=== PATIENT | male | born 1950 | race Caucasian/White ===

== ENCOUNTER 2016-09-23 16:27 | Emergency (ER) | payer MEDICARE, OTHER ==
[~2016-09-23] VITALS: Ht 180.3 cm; Wt 95.5 kg
[~2016-09-23 16:27] MED LIST: ADA30 PO; ASP81TEC PO; BIOT5TAB PO; CALC-864 PO; CHOL10002 PO; CLON0.3T PO; CYAN250L PO; FES300 PO; METF500T4 PO; MULT-1018 PO; PYRI50CA PO; SIMV80TA4 PO; ZES20T PO
[2016-09-23 16:43] VITALS: BP 158/80; PULSE 65; RESP 16; O2SAT 96
--- NOTE | 2016-09-23 16:57 | ED.REPORT ---
HPI-Extremity Problem Upper Date of Service September 23, 2016 ED Provider: Kirt Torres MD Pt is a 66 y/o male w/ a hx of HTN, NIDDM, presenting to the ED c/o left finger 3 injury secondary to table saw accident which occurred about 1 hour ago. The patient was making a bird feeder at home and accidentally nicked his left finger 3. He has injured this finger before. He is right hand dominant. He denies numbness or weakness of the finger, any other sites of injury. He is not anticoagulated. Nursing Notes Stated Complaint: LEFT INDEX FINGER LAC FROM SAW ACCIDENT Chief Complaint: Laceration Nursing Notes Reviewed: Yes Allergies: Coded Allergies: No Known Allergies (Verified , 09/23/16) Scheduled Amoxicillin/Clav K 875-125 mg (Augmentin 875-125 mg) 1 Each Tablet 1 TABLET PO BID Aspirin-Expunged Drug, Do Not Renew! (Aspirin EC-Expunged Drug, Do Not Renew!) 81 Mg Tablet 81 MG PO DAILY DO NOT CRUSH Biotin (Biotin) 5 Mg Tablet 5 MG PO DAILY CYANOCOBALAMIN (B12)-Expunged Drug, Do Not Re (VITAMIN W-46-Zofjxebk Drug, Do Not Renew!) 250 Mcg Lozenge 500 MCG PO DAILY Calcium Carbonate (Natural Calcium) 500 Mg Tablet 1,250 MG PO DAILY Cholecalciferol-Expunged Drug, Do Not Renew! (Vitamin D3-Expunged Drug, Do Not Renew!) 1,000 Unit Tablet 1,000 UNITS PO DAILY Clonidine-Expunged Drug, Do Not Renew! (Clonidine-Expunged Drug, Do Not Renew!) 0.3 Mg Tablet 0.3 MG PO BID Ferrous Sulfate-Expunged Drug, Do Not Renew! (Feosol-Expunged Drug, Do Not Renew !) 325 Mg Tablet 325 MG PO DAILY Lisinopril-Expunged Drug, Do Not Renew! (Lisinopril-Expunged Drug, Do Not Renew! ) 20 Mg Tablet 20 MG PO DAILY MULTIVITAMIN-Expunged Drug, Do Not Renew! (MULTI VITAMIN -Expunged Drug, Do Not Renew!) 1 Each Tablet 1 EACH PO DAILY Metformin-Expunged Drug, Do Not Renew! (Metformin-Expunged Drug, Do Not Renew!) 500 Mg Tablet 500 MG PO BID Nifedipine-Expunged Drug, Do Not Renew! (Nifedipine-Expunged Drug, Do Not Renew! ) 30 Mg Tber 60 MG PO DAILY DO NOT CRUSH OR CHEW TABLET PYRIDOXINE HCL-Expunged Drug, Do Not Renew! (VITAMIN O-3-Pjrsxxtf Drug, Do Not Renew!) 50 Mg Capsule 50 MG PO DAILY Simvastatin-Expunged Drug, Choose New Med! (Simvastatin-Expunged Drug, Choose New Med!) 80 Mg Tablet 80 MG PO HS General Time Seen by MD: 16:57 Chief Complaint Finger injury left 3 Hx Obtained From: Patient Arrived By: Walk-in Onset Occurred: 1 - 4 hours ago Symptom Duration: Since onset Location: : Finger left 3 Quality: Painful Severity: Current: Moderate Severity: Maximum: Moderate Recent Healthcare: No recent doctor visit, No recent hospitalization Similar Sx Previous: Yes Past Medical History Past Medical History Hypertension T2DM Hyperlipidemia Hx of pneumonia Hx headaches GERD Hx kidney stones Hx UTI Hx back injury Past Surgical History Appendectomy Gastric bypass Vasectomy Oral tumor resection Smoking History Current Every Day Smoker Social History Alcohol Use: "Social" Drug Use: Denies drug use Ambulatory Status Independent Review of Systems Constitutional: Denies: Chills, Fever Musculoskeletal: Reports: Extremity pain Neurologic: Denies: Change LOC, Headache Complete sys rev & neg: except as marked. Hematologic: Reports Bleeding Physical Exam Initial Vital Signs Vital Signs (First) Date Time Temp Pulse Resp B/P Pulse Ox O2 Delivery O2 Flow Rate FiO2 09/23/16 16:43 36.5 65 16 158/80 96 Room Air Initial VS: Reviewed, Vital signs normal Head / Eyes: Atraumatic, Normocephalic, PERRL ENT: Mucous membranes moist, Conjunctiva normal, No scleral icterus Neck: Supple, Full range of motion Respiratory: Breath sounds normal, Clear to auscultation, No respiratory distress Cardiovascular: Regular rate & rhythm, Heart sounds normal, Intact distal pulses Abdomen / GI: Soft, Non-tender, No guarding, No rebound, No distention Lower Extremities: Vascular intact, Neuro intact, No swelling, No tenderness Skin: Warm, Dry, No cyanosis Neurologic: Alert, Oriented, Nonfocal Psychiatric: Mood/affect normal, Behavior normal, Normal thought content General/Constitutional: Awake, Alert, No acute distress, Well appearing, Cooperative, Not toxic appearing Wrist / Hand: Full range of motion, No deformity, Neurologic intact, Vascular intact, No ligamentous injury, Tendon function NL, No compartment syndrome, No clubbing/cyanosis Left 3rd finger oblique laceration extending from beyond DIP joint distally Appears to involve the nail bed with shearing off of the majority of finger nail. No exposed bony or ligamentous structures. Good cap refill. Sensation intact. Able to flex and extend finger at all joints. Good radial pulses. No other injuries Interpretation & Diagnostics X-Ray Interpretation Xray Interpretation: IMPRESSION: Third digit fracture. Dictated by: Fatoumata Haywood M.D. on 09/23/2016 at 18:01 Approved by: Fatoumata Haywood M.D. on 09/23/2016 at 18:02 Study Performed: Fingers, left Interpretation / Wet Read by: Interpret - Radiologist Procedures Digital Nerve Block Time: 17:18 Procedure Performed by: Allied health pract (YISSEL) Indication: Finger laceration repair Consent / Setup / Site Prep: Consent from patient, Time-out performed, Hand hygiene observed, Stand sterile technique Skin Preparation Agent: Shurclens Digit Involved: Middle finger left Digital Block Procedure: Two digital nerve block, Lidocaine 1%, 3cc Post-Procedure / Complications: No complications, Condition improved, Tolerated procedure well, Patient stable Time: 18:10 Procedure Performed by: Allied health pract (DALILA Vasquez) Indication: Finger laceration repair Consent / Setup / Site Prep: Consent from patient Skin Preparation Agent: Betadine, Normal saline Digit Involved: Middle finger left Digital Block Procedure: Lidocaine 2%, 3cc, 27g needle, Dorsal approach Laceration Management Procedure Performed by: Allied health pract (DALILA Vasquez) Location of Wound: Amputation of the nailbed of the left middle digit Wound Length: 2 cm Wound Preparation: Betadine, Normal saline Debridement: Minimal Irrigation: 250 cc Foreign Body Explore / Removal: Explored for foreign body Post-Procedure / Complications: Antibiotic oint applied, Dressing applied ( Xeroform, gauze pad, gauze wrap, Coban wrap), No complications, Condition improved, Tolerated procedure well, Patient stable Re-Eval/Medical Decision Med Decision/Clinical Course Pt is a 66 y/o male w/ a hx of HTN, NIDDM, presenting to the ED c/o left finger 3 injury secondary to table saw accident which occurred about 1 hour ago. The patient was making a bird feeder at home and accidentally nicked his left finger 3. He has injured this finger before. He is right hand dominant. He denies numbness or weakness of the finger, any other sites of injury. He is not anticoagulated. Here in the emergency department the patient is afebrile with stable vital signs and examination as above. It appears that he has avulsed fingernail and has an oblique laceration about the dorsum of his finger though there is no obvious exposed bone. X-rays were obtained as below: Mildly displaced comminuted fracture of the distal tuft of the distal phalanx of the third digit. No suspicious bony lesions. The patient was discussed with Dr. Gutierrez CAMEJO copiously irrigated the wound, applied Xeroform dressing and placed him in a finger splint. We have prescribed a course of prophylactic antibiotics given that we cannot 100% say that there is no exposed ligamentous or bony structures. He then referred to orthopedic surgery for further evaluation of his wound. His tetanus status is up-to-date and at this time I feel that he is appropriate for discharge. Prior to discharge follow-up and return precautions were reviewed in detail with the patient who verbalized understanding and agreement with the plan. The patient was discharged in stable condition. Counseled Regarding: Diagnosis, Need for follow-up, When/why to return to ED Discharge & Departure Impression: Primary Impression: Laceration Additional Impression: Closed fracture of tuft of distal phalanx of finger Encounter type: initial encounter Qualified Code: S62.639A - Displaced fracture of distal phalanx of unspecified finger, initial encounter for closed fracture Disposition: Home Discharge Condition All VS Reviewed: Yes Condition: Stable Patient Instructions: Laceration (ED) Additional Instructions: Evaluation in the emergency department for a finger laceration includes history , physical examination and x-ray. X-ray reveals a fracture to the end of your finger. We have placed the finger in a splint and dressed it. We discovered up and dry for 24 hours. After that he can remove the dressing, wash with soap and water and inspected for signs of infection. Redress with antibiotic ointment, splint and gauze. You have been provided with a tetanus booster and a prescription for Augmentin to be taken 4 times a day for 7 days. This is to prevent infection. The pain is best treated with 800 mg of ibuprofen (Advil, Motrin) every 6 hours , or 1000 mg of acetaminophen (Tylenol) every 6 hours. These drugs can be taken at the same time for more severe pain. I have provided a referral for orthopedic follow-up. Please contact them tomorrow to arrange to be seen. Return to emergency department for any new or worsening symptoms including increasing pain, redness, swelling, discharge. Referrals: Ermias Gunn MD EDSupervising Provider for APC: Kirt Torres MD Attestation Portions of this note were transcribed by Reilly Ruiz. I, Dr. Mar personally performed the history, physical exam and medical decision-making; I reviewed and confirmed the accuracy of the information in the transcribed note. Signed by Lian Rayo, 09/23/16 - [id number] copies to: Ermias Gunn MD, Beck O MD September 23, 2016 16:57 REILLY RUIZ September 23, 2016 17:17 Mohamud Whitley PA-C September 23, 2016 18:27
--- NOTE | 2016-09-23 18:03 | DRSVH ---
PROCEDURE: X-RAY FINGERS, TWO VIEWS INDICATIONS: trauma, finger versus electric blade TECHNIQUE: AP hand, 2 views of the left third finger(s) acquired. COMPARISON: None. FINDINGS: Bones: Mildly displaced comminuted fracture of the distal tuft of the distal phalanx of the third dig it. No suspicious bony lesions. Soft tissues: No suspicious soft tissue calcifications. IMPRESSION: Third digit fracture. Dictated by: Fatoumata Haywood M.D. on 09/23/2016 at 18:01 Approved by: Fatoumata Haywood M.D. on 09/23/2016 at 18:02
[2016-09-23] MEDS ORDERED: TdaP Vaccine 0.5 mL Inj IM ONE (18:25)
[2016-09-23] MEDS ORDERED: Amoxicillin-Clav 875-125 mg Tablet PO ONE (19:10)
[2016-09-23] MEDS ORDERED: AMOX-366 PO (20:02)
[2016-09-23 20:10] VITALS: BP 153/80; PULSE 70; RESP 16; O2SAT 95
== END 2016-09-23 20:00 | disposition home or self-care (01) ==
LOC: SED 16:27
DX: S61.313A Laceration without foreign body of left middle finger with damage to nail, initial encounter (principal); S62.633A Displaced fracture of distal phalanx of left middle finger, initial encounter for closed fracture; W27.0XXA Contact with workbench tool, initial encounter; Y93.D9 Activity, other involving arts and handcrafts; Y92.009 Unspecified place in unspecified non-institutional (private) residence as the place of occurrence of the external cause; Y99.8 Other external cause status; I10 Essential (primary) hypertension; E11.9 Type 2 diabetes mellitus without complications; E78.5 Hyperlipidemia, unspecified; F17.200 Nicotine dependence, unspecified, uncomplicated; Z23 Encounter for immunization; Z87.828 Personal history of other (healed) physical injury and trauma; Z79.82 Long term (current) use of aspirin; Z79.84 Long term (current) use of oral hypoglycemic drugs; Z79.899 Other long term (current) drug therapy

== ENCOUNTER → 2017-01-13 | Day surgery (SDC) | payer MEDICARE, OTHER ==
[~2017-01-13] VITALS: Ht 180.3 cm; Wt 90.7 kg
[~2017-01-13] MED LIST changes: +0.9% Sodium Chloride 1,000 ML IV PRN; -ADA30 PO; +AMOX-366 PO; -ASP81TEC PO; +ASPI-973 PO; -CALC-864 PO; +CYCL10TA9 PO; +ESTR10TA9 VG; +FERR-83 PO; -FES300 PO; +LISI-567 PO; -MULT-1018 PO; +NIFE60TA62 PO; +Sodium Chloride LOK Flush 10 mL Syringe IV PRN; -ZES20T PO; +fentaNYL-PF 50 mCg/mL 2 mL Inj IVPUSH PRN
[2017-01-13 13:31] VITALS: BP 144/80; PULSE 50; RESP 12; O2SAT 97
[2017-01-13 14:51] VITALS: BP 151/77; PULSE 40; O2SAT 99
[2017-01-13 15:18] VITALS: BP 148/75; PULSE 40; RESP 12; O2SAT 98
[2017-01-13 15:23] VITALS: BP 152/72; PULSE 47; RESP 14; O2SAT 98
--- NOTE | 2017-01-13 23:57 | ENDO ---
[address] [address] ENDOSCOPY PROCEDURE PATIENT: TITA GARCIA : 1950 MR#: [id number] ADMIT: 01/13/2017 JOB ID: [id number] DATE OF SERVICE: 01/13/2017 PROVIDER: Onelia Oliva MD PROCEDURE: 1. Colonoscopy. 2. Hot snare polypectomy. 3. Cold snare polypectomy. 4. Cold forceps polypectomy. INDICATIONS: This is a 66-year-old male with a recent change in bowel habit. However, he has responded nicely to increased sauerkraut in his diet. EQUIPMENT: PCF H 180 AL. SEDATION: 1. 2 mg Versed. 2. 75 mcg fentanyl. COMPLICATIONS: None identified. BOWEL PREPARATION: Fair at best. PROCEDURE INFORMATION: After the risks and benefits were explained, written and verbal informed consent was obtained. The patient was brought into the endoscopy suite and placed into the left lateral decubitus position. Sedation was achieved as above. A digital rectal examination accomplished. Mild internal hemorrhoids noted. The scope was introduced into the rectum and advanced to the cecum as identified by the appendiceal orifice and ileocecal valve. The scope was slowly withdrawn to carefully examine the mucosa for any defects or lesions. Retroflexed views were avoided in the rectum. Multiple direct views were made through the dentate line for exclusion of pathology. The colon was decompressed. The scope removed from the patient who tolerated the procedure well. FINDINGS: In the cecum, there was an approximately 5-6 mm sessile possible polyp removed with a hot snare. In the rectosigmoid region, there was a diminutive polyp that we attempted to removed with cold snare, but the snare slipped over the top of half of this polyp and therefore we removed the second half with cold forceps. No other significant pathology was appreciated throughout. The patient, however, had an extremely lengthy redundant looping colon. ENDOSCOPIC DIAGNOSES: 1. Redundant colon. 2. Colon polyps. RECOMMENDATIONS: 1. Await histopathology. 2. Considering family history, repeat colonoscopy five years. 3. Continue dietary adjustments as previously recommended in clinic. 4. Follow up on clinical effect in the next 6-8 weeks in the office.
--- NOTE | 2017-01-15 15:50 | PATH ---
SURGICAL PATHOLOGY Attending Physician:Cole Ellis CASE STATUS: Signed Out PATIENT NAME: TITA GARCIA PID: [id number] : 1950 DATE COLLECTED:01/13/2017 00:00 SPECIMEN: Colon, Polyp CLINICAL HISTORY: 1). POLYPS COLON FINAL DIAGNOSIS: Colon, Polyps, Biopsies: Portions of tubular adenoma x3; negative for high-grade dysplasia. Superficial portions of colorectal mucosa x2 with no diagnostic abnormality. ICD10: K63.5 GROSS DESCRIPTION: The specimen is received in one formalin filled container labeled with the patient's name, sublabeled "polyps colon" and consists of multiple portions of tissue which aggregate to 0.4 x 0.4 x 0.3 CM. The specimen is entirely submitted in one cassette. 01/14/2017ME ICD-9 CODES: CPT CODES: 1: 40715 Electronically Signed Out Maren Callejas MD [facility] Pathology [facility] [address], [place] [address] Technical component performed at [facility], [facility] [address], [place], [address]
== END | disposition home or self-care (01) ==
LOC: END 00:31
PROVIDERS: ATTEND Internal Medicine Gastroenterology
DX: R19.4 Change in bowel habit (principal); D12.0 Benign neoplasm of cecum; D12.7 Benign neoplasm of rectosigmoid junction; E11.9 Type 2 diabetes mellitus without complications; Z79.84 Long term (current) use of oral hypoglycemic drugs; Z79.82 Long term (current) use of aspirin
CPT/HCPCS: 45380; 45385; 99153; G0500; J2250; J3010; J7030